=== PATIENT | male | born 2000 | race Caucasian/White ===

== ENCOUNTER 2021-08-30 00:56 | Emergency (ER) | payer OTHER ==
[2021-08-30 01:32] LABS: HEMOGLOBIN 16.9 gm/dl (14.0-17.5); RED BLOOD COUNT 5.14 M/UL (4.20-5.50); WHITE BLOOD COUNT 11.7 K/UL (4.5-11.0)
[2021-08-30 01:59] LABS: BUN/CREATININE RATIO 11 (0-10)
[2021-08-30] MEDS ORDERED: ZOFRAN ODT 4 MG4 MG PO (06:20)
== END 2021-08-30 06:37 | disposition home or self-care (01) ==
LOC: ER1 00:56
PROVIDERS: Family Medicine
DX: T40.2X1A Poisoning by other opioids, accidental (unintentional), initial encounter (principal); E87.6 Hypokalemia; R00.0 Tachycardia, unspecified; R11.2 Nausea with vomiting, unspecified; F17.200 Nicotine dependence, unspecified, uncomplicated; F10.11 Alcohol abuse, in remission
CPT/HCPCS: 36600; 71045; 80053; 80307; 81001; 82550; 82553; 82803; 84439; 84443; 84484; 85025; 93005; 96365; 96375; 99285; G0480; J2405; J3411; J3475; J7030; Q9967